=== PATIENT | female | born 1945 | race Caucasian/White ===

== ENCOUNTER → 2017-09-02 | Outpatient (CLI) | payer MEDICARE | END | disposition home or self-care (01) | LOC: CVU 07:50 | PROVIDERS: ATTEND Internal Medicine Cardiovascular Disease | DX: I08.0 Rheumatic disorders of both mitral and aortic valves (principal); I10 Essential (primary) hypertension; E78.5 Hyperlipidemia, unspecified; R06.02 Shortness of breath; R01.1 Cardiac murmur, unspecified | CPT/HCPCS: 93306 ==

== ENCOUNTER → 2018-05-01 | Outpatient (CLI) | payer MEDICARE | END | disposition home or self-care (01) | LOC: CVU 09:43 | PROVIDERS: ATTEND Internal Medicine Cardiovascular Disease | DX: I08.2 Rheumatic disorders of both aortic and tricuspid valves (principal); I10 Essential (primary) hypertension; E78.5 Hyperlipidemia, unspecified; Z87.891 Personal history of nicotine dependence | CPT/HCPCS: 93306 ==

== ENCOUNTER → 2018-05-18 | Outpatient (CLI) | payer MEDICARE | END | disposition home or self-care (01) | LOC: CFH 15:35 | PROVIDERS: ATTEND Nurse Practitioner | DX: R06.02 Shortness of breath (principal); M41.84 Other forms of scoliosis, thoracic region; I10 Essential (primary) hypertension | CPT/HCPCS: 71046 ==

== ENCOUNTER → 2018-06-14 | Outpatient (CLI) | payer MEDICARE | END | disposition home or self-care (01) | LOC: CFH 07:22 | PROVIDERS: ATTEND Nurse Practitioner Family | DX: Z12.31 Encounter for screening mammogram for malignant neoplasm of breast (principal); M85.88 Other specified disorders of bone density and structure, other site | CPT/HCPCS: 77063; 77080; 77067 ==

== ENCOUNTER → 2019-03-27 | Outpatient (CLI) | payer MEDICARE | END | disposition home or self-care (01) | LOC: CFH 08:22 | PROVIDERS: ATTEND Internal Medicine Cardiovascular Disease | DX: I35.0 Nonrheumatic aortic (valve) stenosis (principal); E78.2 Mixed hyperlipidemia; I10 Essential (primary) hypertension | CPT/HCPCS: 71046 ==

== ENCOUNTER → 2019-04-17 | Outpatient (CLI) | payer MEDICARE | END | disposition home or self-care (01) | LOC: CVU 14:18 | PROVIDERS: ATTEND Internal Medicine Cardiovascular Disease | DX: I35.0 Nonrheumatic aortic (valve) stenosis (principal); I10 Essential (primary) hypertension | CPT/HCPCS: 93306 ==

== ENCOUNTER → 2019-08-31 | Outpatient (CLI) | payer MEDICARE | END | disposition home or self-care (01) | LOC: CVU 13:22 | PROVIDERS: ATTEND Internal Medicine Cardiovascular Disease | DX: I08.3 Combined rheumatic disorders of mitral, aortic and tricuspid valves (principal); I10 Essential (primary) hypertension; E78.5 Hyperlipidemia, unspecified; Z87.891 Personal history of nicotine dependence | CPT/HCPCS: 93306 ==

== ENCOUNTER → 2019-10-17 | Outpatient (CLI) | payer MEDICARE | END | disposition home or self-care (01) | LOC: CARD 14:00 | PROVIDERS: ATTEND Internal Medicine Cardiovascular Disease | DX: R06.02 Shortness of breath (principal) | CPT/HCPCS: 94060; 94726; 94729 ==

== ENCOUNTER → 2019-10-31 | Outpatient (CLI) | payer MEDICARE | END | disposition home or self-care (01) | LOC: CFH 08:43 | PROVIDERS: ATTEND Internal Medicine Cardiovascular Disease | DX: I35.0 Nonrheumatic aortic (valve) stenosis (principal); I10 Essential (primary) hypertension; E78.2 Mixed hyperlipidemia | CPT/HCPCS: 71046 ==

== ENCOUNTER → 2019-11-30 | Outpatient (CLI) | payer MEDICARE ==
[~2019-11-30] MED LIST: ATOR10TA9 PO; BENA1TAB10 PO; CA C1TAB60 PO; DEXL60CA2 PO; PANT40TA6 PO
== END | disposition home or self-care (01) ==
LOC: CFH 07:50
PROVIDERS: ATTEND Nurse Practitioner Family
DX: Z12.31 Encounter for screening mammogram for malignant neoplasm of breast (principal)
CPT/HCPCS: 77063; 77067

== ENCOUNTER 2019-12-03 09:56 | Day surgery (SDC) | payer MEDICARE ==
[~2019-12-03] VITALS: Ht 165.1 cm; Wt 125.5 kg
[2019-12-03] MEDS ORDERED: SODIUM CHLORIDE 0.9% 1,000 ML IV SCH ×2 (10:26→12:11)
[2019-12-03 10:34] VITALS: BP 107/78
[2019-12-03] MEDS ORDERED: DEXL60CA2 PO (10:39)
[2019-12-03] MEDS ORDERED: BENA1TAB10 PO (10:39)
[2019-12-03] MEDS ORDERED: PANT40TA6 PO (10:39)
[2019-12-03] MEDS ORDERED: CA C1TAB60 PO (10:39)
[2019-12-03] MEDS ORDERED: ATOR10TA9 PO (10:39)
[2019-12-03] MEDS ORDERED: HEPARIN 1,000 UNITS/ML, 10ML ONE ×2 (10:56→11:25)
[2019-12-03] MEDS ORDERED: MIDAZOLAM 1 MG/ML, 2ML ONE ×2 (10:56→11:25)
[2019-12-03] MEDS ORDERED: VERAPAMIL 2.5 MG/ML, 2ML ONE ×2 (10:56→11:25)
[2019-12-03] MEDS ORDERED: LIDOCAINE-MPF 1%, 5ML ONE ×2 (10:56→11:25)
[2019-12-03] MEDS ORDERED: FENTANYL PF 100 MCG/2ML ONE ×2 (10:56→11:25)
[2019-12-03] MEDS ORDERED: NITROGLYCERIN 30 MCG/ML, 20ML VIAL ONE ×2 (10:57→11:25)
[2019-12-03 10:58] LABS: BASOPHILS % (AUTO) 1 % (0-1); EOSINOPHILS % (AUTO) 2 % (1-7); LYMPHOCYTES % (AUTO) 21 % (22-44); MEAN CORPUSCULAR HEMOGLOBIN 22.9 pg (27.0-34.8); MEAN CORPUSCULAR HGB CONC 30.8 g/dL (32.4-35.8); MEAN PLATELET VOLUME 7.1 fL (7.4-10.4); MONOCYTES % (AUTO) 8 % (2-9); NEUTROPHILS % (AUTO) 68 % (42-75); PLATELET COUNT 412 x10^3/uL (130-400); RED BLOOD COUNT 4.52 x10^6/uL (3.82-5.3)
[2019-12-03] MEDS ORDERED: LIDOCAINE 2%, 20ML ONE (11:05)
[2019-12-03 11:06] LABS: ANION GAP 3 mmol/L (5-15); CALCIUM 9.2 mg/dL (8.5-10.1); CHLORIDE 108 mmol/L (98-107); CREATININE 0.83 mg/dL (0.55-1.02)
[2019-12-03 11:33] LABS: ANISOCYTOSIS 1+; MD MORPH REVIEW ONLY; MICROCYTOSIS 1+
[2019-12-03 11:34] LABS: <PLATELET ESTIMATE> INCREASED; <PLT MORPHOLOGY> NORMAL PLT MORPH; HYPOCHROMIA 1+; OVALOCYTES 1+; POLYCHROMASIA 1+
== END 2019-12-03 14:11 | disposition home or self-care (01) ==
LOC: CACL 09:56
PROVIDERS: ATTEND Internal Medicine Cardiovascular Disease
DX: I35.0 Nonrheumatic aortic (valve) stenosis (principal); I11.0 Hypertensive heart disease with heart failure; I50.9 Heart failure, unspecified; E78.5 Hyperlipidemia, unspecified; Z79.899 Other long term (current) drug therapy; Z88.0 Allergy status to penicillin
CPT/HCPCS: 36415; 80048; 85025; 93454; 99156; C1769; C1894; J1644; J2250; J3010; Q9967

== ENCOUNTER → 2019-12-11 | Outpatient (CLI) | payer MEDICARE ==
[~2019-12-11] MED LIST changes: +VISIPAQUE 320 MG/ML, 150ML BOTTLE ONE
== END | disposition home or self-care (01) ==
LOC: CVU 10:48
PROVIDERS: ATTEND Internal Medicine Cardiovascular Disease
DX: Z01.810 Encounter for preprocedural cardiovascular examination (principal); I65.23 Occlusion and stenosis of bilateral carotid arteries; R06.02 Shortness of breath; I70.0 Atherosclerosis of aorta; Q25.46 Tortuous aortic arch
CPT/HCPCS: 71275; 74174; 93880; Q9967

== ENCOUNTER → 2019-12-20 | Outpatient (CLI) | payer MEDICARE ==
[~2019-12-20] MED LIST changes: -VISIPAQUE 320 MG/ML, 150ML BOTTLE ONE
== END | disposition home or self-care (01) ==
LOC: STAR 09:15
PROVIDERS: ATTEND Anesthesiology
DX: Z01.812 Encounter for preprocedural laboratory examination (principal); Z20.828 Contact with and (suspected) exposure to other viral communicable diseases
CPT/HCPCS: 36415; 87635

== ENCOUNTER → 2020-02-06 | Outpatient (CLI) | payer MEDICARE ==
[~2020-02-06] MED LIST changes: +ASPI81TA45 PO
== END | disposition home or self-care (01) ==
LOC: CVU 06:22
PROVIDERS: ATTEND Internal Medicine Cardiovascular Disease
DX: I08.1 Rheumatic disorders of both mitral and tricuspid valves (principal); I65.29 Occlusion and stenosis of unspecified carotid artery; R06.02 Shortness of breath
CPT/HCPCS: 93306